=== PATIENT | female | born 1995 | race Caucasian/White ===

== ENCOUNTER 2023-10-22 02:58 | Emergency (ER) | payer OTHER ==
[~2023-10-22] VITALS: Ht 167.6 cm; Wt 70.0 kg
[2023-10-22 03:18] VITALS: BP 106/78; PULSE 88; RESP 20; TEMP 98.6
[2023-10-22] MEDS: LIDOCAINE 1% 10 ML VIAL SQ ONE (03:49)
[2023-10-22] MEDS: PERTUSS(ACELL),DIPH,TET/PF 0.5 ML SYRINGE [ADULT] IM. ONE (03:51)
== END 2023-10-22 04:06 | disposition home or self-care (01) ==
LOC: EMS 02:59
DX: S01.01XA Laceration without foreign body of scalp, initial encounter (principal); S09.90XA Unspecified injury of head, initial encounter; W19.XXXA Unspecified fall, initial encounter; Y93.89 Activity, other specified; Y92.89 Other specified places as the place of occurrence of the external cause; Y99.8 Other external cause status
CPT/HCPCS: 99282; 12001; J3490; 90715

== ENCOUNTER 2023-10-30 10:40 | Emergency (ER) | payer OTHER ==
[~2023-10-30] VITALS: Ht 160 cm; Wt 63.6 kg
[2023-10-30 10:41] VITALS: BP 107/58; PULSE 77; RESP 16; TEMP 98.1
== END 2023-10-30 11:21 | disposition home or self-care (01) ==
LOC: EMS 10:40
DX: S00.90XD Unspecified superficial injury of unspecified part of head, subsequent encounter (principal); Z48.02 Encounter for removal of sutures; X58.XXXD Exposure to other specified factors, subsequent encounter
CPT/HCPCS: 99281; Z7502